=== PATIENT | male | born 1970 | race Caucasian/White ===

== ENCOUNTER 2017-01-26 21:23 | Emergency (ER) | payer BC ==
[2017-01-26] MEDS ORDERED: ONDANSETRON 4 MG/2 ML VIAL IVP ONE (21:56)
[2017-01-26] MEDS ORDERED: NS 1,000 ML IV ONE (21:56)
[2017-01-26] MEDS ORDERED: HYDROmorphONE/DILAUDID 1 MG/ML INJ IVP ONE (21:56)
[2017-01-26] MEDS ORDERED: IOPAMIDOL (ISOVUE-300) 100 ML BTL ONE (22:02)
[2017-01-26 22:06] LABS: PLATELET COUNT 262 10^3/uL (150-400)
--- NOTE | 2017-01-26 22:38 | EDPHY ---
H & P Time Seen by Provider: 01/26/17 21:37 HPI/ROS: HPI Abdominal and testicular pain. 46-year-old male by private vehicle with his . This patient complains of cramping lower abdominal pain starting in his suprapubic and inguinal areas and radiating into his bilateral testicles ongoing for 2-3 days. He was seen at an urgent care earlier today and during the testicular exam he became sweaty and lightheaded. He states that he does not think this was because of pain this not understand why this happened. He has not had a fever. He denies urinary complaints. Last bowel movement was earlier today. No bloody or melenic stool. There is no history of trauma. Denies any hematuria or discharge. ROS: Constitutional: No fever, no chills. No weakness. Eyes: No discharge. No changes in vision. ENT: No sore throat. No nasal congestion or rhinorrhea. Respiratory: No cough. No shortness of breath. Cardiac: No chest pain, no palpitations. Gastrointestinal: As above, no vomiting, no diarrhea. Genitourinary: No hematuria. No dysuria or increased frequency with urination. As above. Musculoskeletal: No back pain. No neck pain. No myalgias or arthralgias. Skin: No rashes. Neurological: No headache. No focal weakness or altered sensation. Past medical history: Hyperlipidemia, hypertension. Social history: Here with his girlfriend. No alcohol. Nonsmoker. Physical Exam: General Appearance: Alert, no distress. This patient is responding to questions appropriately and in full sentences. This patient appears well- hydrated and well-nourished. Eyes: Pupils equal and round no pallor or injection. No lid edema, erythema or injection. Respiratory: There are no retractions, lungs are clear to auscultation with good air movement bilaterally. Cardiovascular: Regular rate and rhythm. No murmur. Gastrointestinal: Abdomen is soft with vague and mild lower abdominal tenderness on palpation, no masses, bowel sounds normal. No focal tenderness at McBurney's point. No Cummings sign. Testicular exam: Normal lie. No masses. No erythema, no edema or warmth. No evidence of inguinal hernia. No discharge or skin lesions. Normal male genitalia. Circumcised penis. Neurological: Motor sensory function is grossly intact. Cranial nerves are normal. Gait is normal. Skin: Warm and dry, no rashes. Musculoskeletal: Neck is supple and nontender. Extremities are symmetrical. All joints range without pain or impingement. Psychiatric: No agitation. No depression. Database: EKG: Imaging: Testicular ultrasound: No evidence of epididymitis, varicocele, hydrocele, torsion or other abnormality. Results were discussed with staff radiologist Dr. Fritz Mcgowan. CT scan of abdomen and pelvis with IV contrast: The appendix is well visualized and is normal. No evidence of hernia. No evidence of colitis. There is some constipation. Otherwise no abnormalities. Results were discussed with staff radiologist Dr. Fritz Mcgowan. Procedures: Emergency department course: IV placed. He was placed on a monitor. He will be given 0.5 mg of IV hydromorphone and 4 mg of IV Zofran as needed for pain. His vital signs reviewed and are normal. 11:45 p.m., patient re-evaluated. Results of emergency department workup discussed with him in detail. He denies any pain or discomfort at this time. Repeat abdominal exam he is soft, nontender and nondistended. He feels comfortable going home and I feel he is safe for discharge. Follow-up and return to emergency department precautions were reviewed with him in detail. All of his questions were answered. He was discharged home in good condition. Differential Diagnosis: The differential diagnosis on this patient includes but is not limited to constipation. Kidney stone, appendicitis, diverticulitis, colitis, testicular torsion, epididymitis, hernia unlikely. This represents a partial list of diagnoses considered. These considerations are based on history, physical exam , past history, reassessment and diagnostic testing. Smoking Status: Never smoked Constitutional: Initial Vital Signs Temperature (C) 36.8 C 01/26/17 21:25 Heart Rate 90 01/26/17 21:25 Respiratory Rate 20 01/26/17 21:25 Blood Pressure 112/80 01/26/17 21:25 O2 Sat (%) 96 01/26/17 21:25 O2 Delivery Mode Room Air Allergies/Adverse Reactions: No Known Allergies Allergy (Unverified 01/26/17 21:28) Home Medications: Medication Instructions Recorded Amalodipine 01/26/17 Benacar 01/26/17 Crestor 01/26/17 Hydrochlorothiazide 01/26/17 buPROPion 01/26/17 Medical Decision Making - Diagnostics Imaging Results: Imaging Impressions Abdomen CT 01/26/17 21:56 Impression: 1. No hernia or intra-abdominal inflammatory process to explain pain. 2. Mild constipation. Normal appendix. 3. Minimal hepatic steatosis. Findings discussed with Emergency Department physician, Leydi Abarca MD at 01/26/2017 23:34. Testicular Ultrasound 01/26/17 21:57 Impression: 1. Normal testes. No testicular mass or evidence of torsion. 2. No evidence of acute epididymitis. Findings discussed with Emergency Department physician dermatology physician assistant, Christine Brown at 01/26/2017 23:20. - Data Points Laboratory Results: Laboratory Results 01/26/17 21:40 01/26/17 21:40 01/26/17 01/26/17 01/26/17 22:10 21:40 21:40 WBC 6.67 10^3/uL 10^3/uL (3.80-9.50) RBC 5.38 10^6/uL 10^6/uL (4.40-6.38) Hgb 15.9 g/dL g/dL (13.7-17.5) Hct 43.5 % % (40.0-51.0) MCV 80.9 fL L fL (81.5-99.8) MCH 29.6 pg pg (27.9-34.1) MCHC 36.6 g/dL g/dL (32.4-36.7) RDW 12.9 % % (11.5-15.2) Plt Count 262 10^3/uL 10^3/uL (150-400) MPV 10.3 fL fL (8.7-11.7) Neut % (Auto) 47.7 % % (39.3-74.2) Lymph % (Auto) 40.2 % % (15.0-45.0) [place] % (Auto) 9.6 % % (4.5-13.0) Eos % (Auto) 1.8 % % (0.6-7.6) Baso % (Auto) 0.6 % % (0.3-1.7) Nucleat RBC Rel Count 0.0 % % (0.0-0.2) Absolute Neuts (auto) 3.18 10^3/uL 10^3/uL (1.70-6.50) Absolute Lymphs (auto) 2.68 10^3/uL 10^3/uL (1.00-3.00) Absolute Monos (auto) 0.64 10^3/uL 10^3/uL (0.30-0.80) Absolute Eos (auto) 0.12 10^3/uL 10^3/uL (0.03-0.40) Absolute Basos (auto) 0.04 10^3/uL 10^3/uL (0.02-0.10) Absolute Nucleated RBC 0.00 10^3/uL 10^3/uL (0-0.01) Immature Gran % 0.1 % % (0.0-1.1) Immature Gran # 0.01 10^3/uL 10^3/uL (0.00-0.10) Sodium 141 mEq/L mEq/L (134-144) Potassium 3.5 mEq/L mEq/L (3.5-5.2) Chloride 99 mEq/L mEq/L (97-110) Carbon Dioxide 24 mEq/l mEq/l (22-31) Anion Gap 18 mEq/L H mEq/L (8-16) BUN 21 mg/dL mg/dL (7-23) Creatinine 1.2 mg/dL mg/dL (0.7-1.3) Estimated GFR > 60 Glucose 88 mg/dL mg/dL (70-100) Calcium 10.0 mg/dL mg/dL (8.5-10.4) Urine Color YELLOW Urine Appearance CLEAR Urine pH 7.0 (5.0-7.5) Ur Specific [place] 1.015 (1.002-1.030) Urine Protein NEGATIVE (NEGATIVE) Urine Ketones NEGATIVE (NEGATIVE) Urine Blood NEGATIVE (NEGATIVE) Urine Nitrate NEGATIVE (NEGATIVE) Urine Bilirubin NEGATIVE (NEGATIVE) Urine Urobilinogen NEGATIVE EU EU (0.2-1.0) Ur Leukocyte Esterase NEGATIVE (NEGATIVE) Urine RBC 1-3 /hpf /hpf (0-3) Urine WBC 1-3 /hpf /hpf (0-3) Ur Epithelial Cells NONE SEEN /lpf /lpf (NONE-1+) Urine Mucus TRACE /lpf /lpf (NONE-1+) Urine Glucose NEGATIVE (NEGATIVE) Medications Given: Discontinued Medications Hydromorphone HCl (Dilaudid) 0.5 mg IVP EDNOW ONE Stop: 01/26/17 21:57 Last Admin: 01/26/17 22:08 Dose: 0.5 mg Sodium Chloride (Ns) 1,000 mls @ 0 mls/hr IV EDNOW ONE; Wide Open PRN Reason: Protocol Stop: 01/26/17 21:57 Last Admin: 01/26/17 22:08 Dose: 1,000 mls Ondansetron HCl (Zofran) 4 mg IVP EDNOW ONE Stop: 01/26/17 21:57 Last Admin: 01/26/17 22:08 Dose: 4 mg Departure - Departure Disposition: Home, Routine, Self-Care Clinical Impression: Abdominal pain, Testicular pain Condition: Good Instructions: Testicle Pain (ED), Abdominal Pain (ED) Additional Instructions: Read and follow provided instructions. Follow-up with your primary care physician on Sunday for re-evaluation. Ibuprofen dosin mg every 6 hours with meals for the next 3 days only. Take only as needed for pain. Return to the emergency department for worsening pain, fever, vomiting, lightheadedness or other serious concerns. Referrals: Merle Ortega MD [Primary Care Provider] - As per Instructions
[2017-01-26 23:26] VITALS: BP 106/59; PULSE 84; RESP 14; O2SAT 92
[2017-01-27 00:09] VITALS: TEMP 98.8
== END 2017-01-27 00:07 | disposition home or self-care (01) ==
PROC: 3E0337Z Introduction of Electrolytic and Water Balance Substance into Peripheral Vein, Percutaneous Approach (ICD-10-PCS; principal; 2017-01-26)
DX: N50.819 Testicular pain, unspecified (principal); R10.30 Lower abdominal pain, unspecified; I10 Essential (primary) hypertension; E86.9 Volume depletion, unspecified
CPT/HCPCS: 96374; J1170; J2405; Q9967

== ENCOUNTER 2018-06-04 20:18 | Emergency (ER) | payer BC ==
--- NOTE | 2018-06-04 20:36 | EDPHY ---
H & P Stated Complaint: L rib pain after mech fall at gym Time Seen by Provider: 06/04/18 20:36 HPI/ROS: CHIEF COMPLAINT: Left rib pain HISTORY OF PRESENT ILLNESS: This is a 47 year old male who fell against a hard surface while working out at the gym. He landed on his left side, struck his left thorax. He did not hit his head or lose consciousness. He states that the "wind" was knocked out of him. He c/o pain along left rib cage. Denies other injuries. No numbness or weakness. No neck or back pain. He has not taken anything for pain. REVIEW OF SYSTEMS: A ten system review of systems was performed and is negative with the exception of the items mentioned in the HPI. Past medical history: Hypertension, hhyperlipidemia Past surgical history: Noncontributory Social history: No tobacco use. General Appearance: Alert. Vital signs reviewed. Head: Normocephalic, atraumatic. Neck: Nontender to palpation over cervical spine in midline, no pain with AROM of neck. Respiratory: Lungs are clear to auscultation; no wheezes, rales, or rhonchi. Thorax: No crepitance. Tender to palpation over left anterolateral ribcage below breast. No palpable deformity. Cardiovascular: Regular rate and rhythm; no murmur, rub, or gallop. Thorax: No overlying skin changes. No crepitus. There is some tenderness to palpation over the anterolateral left rib cage 2 fingerbreadths below the left nipple. Gastrointestinal: Abdomen is soft and nontender, no masses or organomegaly, bowel sounds normal. Skin: Warm and dry, no rashes on exposed skin, normal color. Back: Nontender to palpation over the thoracolumbar spine. No CVAT. Extremities: No lower extremity edema, no calf tenderness or swelling. Neurological: Alert and oriented. Moving all four extremities easily and equally. Psychiatric: Normal affect. - Personal History Current Tetanus/Diphtheria Vaccine: Yes - Medical/Surgical History Hx Asthma: No Hx Chronic Respiratory Disease: No Hx Diabetes: No Hx Cardiac Disease: No Hx Renal Disease: No Hx Cirrhosis: No Hx Alcoholism: No Hx HIV/AIDS: No Hx Splenectomy or Spleen Trauma: No Other PMH: hypertension, high cholesterol - Social History Smoking Status: Never smoked Constitutional: Initial Vital Signs Temperature (C) 36.7 C 06/04/18 20:20 Heart Rate 88 06/04/18 20:20 Respiratory Rate 20 06/04/18 20:20 Blood Pressure 118/72 06/04/18 20:20 O2 Sat (%) 97 06/04/18 20:20 O2 Delivery Mode Room Air Allergies/Adverse Reactions: No Known Allergies Allergy (Verified 06/04/18 20:21) Home Medications: Medication Instructions Recorded Amalodipine 01/26/17 Benacar 01/26/17 Crestor 01/26/17 Hydrochlorothiazide 01/26/17 buPROPion 01/26/17 Medical Decision Making ED Course/Re-evaluation: Chest x-ray does not show rib fracture or pneumothorax. Patient does not want pain medication other than [id number] Tylenol and/or ibuprofen. He is given instructions concerning the use of these medications. An ice pack was provided. He is advised to take 2 deep breaths every hour while awake. Danger signs were reviewed with him. Differential Diagnosis: I considered a differential diagnosis that includes but is not limited to rib fracture, pneumothorax, rib contusion, other fractures or contusions, laceration , and abrasion. - Data Points Medications Given: Discontinued Medications Acetaminophen (Tylenol) 650 mg PO EDNOW ONE Stop: 06/04/18 21:15 Last Admin: 06/04/18 21:27 Dose: 650 mg Departure - Departure Disposition: Home, Routine, Self-Care Clinical Impression: Contusion of rib on left side Qualifiers: Encounter type: initial encounter Qualified Code(s): S20.212A - Contusion of left front wall of thorax, initial encounter Condition: Good Instructions: Rib Contusion (ED) Additional Instructions: Take 2 deep breaths every hour while awake. Do this even if it hurts. This helps to keep the air sacs in your lungs expanded. Adult Pain & Fever Control: We recommend Acetaminophen (Tylenol) and Ibuprofen (Motrin,Advil) for pain and fever control. When fever is high or pain severe, both drugs can be used at the same time, but at different intervals. Please note the time differences. Your dose is: Acetaminophen 650mg every 4 to 6 hours Ibuprofen 400mg every 6 hours with food OR Note: do not take Acetaminophen with Hydrocodone (Vicodin, Lortab) or Oycodone (Percocet). These medications also contain Acetaminophen. No more than 3000mg of Acetaminophen should be taken in 24 hours (for an adult). Referrals: Merle Ortega MD [Primary Care Provider] - As per Instructions
[2018-06-04] MEDS ORDERED: ACETAMINOPHEN 325 MG TAB PO ONE (21:14)
[2018-06-04 22:17] VITALS: BP 122/73
== END 2018-06-04 22:17 | disposition home or self-care (01) ==
DX: S20.212A Contusion of left front wall of thorax, initial encounter (principal); W01.10XA Fall on same level from slipping, tripping and stumbling with subsequent striking against unspecified object, initial encounter; Y93.B9 Activity, other involving muscle strengthening exercises; Y92.838 Other recreation area as the place of occurrence of the external cause